=== PATIENT | male | born 1950 | race Caucasian/White ===

== ENCOUNTER → 2019-10-08 14:52 | Outpatient (CLI) | payer OTHER, SELFPAY ==
--- NOTE | ~2019-10-08 | XR_ITS ---
EXAMINATION: XR chest 2V EXAM DATE: 10/08/2019 15:20 INDICATION: Cough for 5 days. TECHNIQUE: Frontal and lateral projections of the chest obtained and reviewed. Comparison is made to prior examination from 10/09/2015. FINDINGS: There is multi segmental right basilar reticulonodular airspace disease likely bronchopneu monia. The lungs are otherwise clear. There are no pleural effusions. The cardiomediastinal silhoue tte is within normal limits. There is no pneumothorax suspected. There are old right posterior rib fractures. IMPRESSION: Multifocal right lower lobe bronchopneumonia. I discussed pneumonia with Dr. Phan Villar MD at 10/08/2019 15:32 FOOTBALL COACH . Reviewed, dictated and finalized at location A. BALL COACH
== END ==
PROVIDERS: PCP Family Medicine; Visit Provider Family Medicine
DX: J40 Bronchitis, not specified as acute or chronic (principal); J18.0 Bronchopneumonia, unspecified organism
CPT/HCPCS: 71046

== ENCOUNTER → 2019-10-16 15:02 | Outpatient (CLI) | payer OTHER, SELFPAY ==
--- NOTE | ~2019-10-16 | XR_ITS ---
EXAMINATION: XR chest 2V 10/16/2019 15:14 INDICATION: Pneumonia. PROCEDURE: 2 view chest COMPARISON: Comparison to multiple prior studies sequentially, with oldest reviewed study dated 12/2013. FINDINGS: The lungs are clear. The cardiomediastinal silhouette is within normal limits. There are no pleural effusions. There is no pneumothorax suspected. There are multiple healed right rib fract ures. IMPRESSION: 1: NO ACUTE CARDIOPULMONARY DISEASE. Reviewed, dictated and finalized at location A.
== END ==
PROVIDERS: PCP Family Medicine; Visit Provider Family Medicine
DX: J18.9 Pneumonia, unspecified organism (principal)
CPT/HCPCS: 71046

== ENCOUNTER 2020-07-11 00:54 | Outpatient (CLI) | payer OTHER, SELFPAY ==
[2020-07-11 19:41] LABS: SARS-CoV-2 RNA PCR Negative
== END 2020-07-11 00:55 | disposition home or self-care (01) ==
LOC: ANHCOVIDDT 00:54
PROVIDERS: PCP Family Medicine; Visit Provider Internal Medicine Gastroenterology
DX: Z01.812 Encounter for preprocedural laboratory examination (principal); Z20.828 Contact with and (suspected) exposure to other viral communicable diseases
CPT/HCPCS: 87635; C9803; U0003

== ENCOUNTER 2020-07-15 00:23 | Day surgery (SDC) | payer OTHER, SELFPAY ==
[2020-07-07 14:17] VITALS: BMI 34.1
[2020-07-15 09:19] VITALS: BP 189/89; PULSE 77; RESP 18; TEMP 36.9; O2SAT 95
--- NOTE | 2020-07-15 09:24 | WPDGICN ---
Assessment and Plan Assessment and plan (1) History of colon polyps: Code(s): Z86.010 - Personal history of colonic polyps Status: Acute Assessment and Plan: Patient has a distant history of colon polyps. He presents to for screening colonoscopy today. Last exam was Five years ago. GI Consult Note Consult date/time: 07/15/20 09:24 HPI: Poli Gray Jr. is a 70 year old male Seen in evaluation at the request of Dr. Balwinder Villar. patient presents for screening colonoscopy. His last colonoscopy was 5 years ago. In the past he has had several colon polyps. Most recently followed by Dr. Valentin. Patient states his current weight appetite bowel movements are normal. He denies abdominal pain. He has had no bleeding. Review of Systems Review of Systems: All systems reviewed & are unremarkable except as noted in HPI and below PMFSH Social History Social History Alcohol intake: current Drinks per week: 25 Alcohol use details: 3-4 beers a night Living arrangements: with family Gender identity (if verbalized by the patient): Male Spiritual care concerns: No Meds Home Medications and Allergies Home Medications Medication Instructions Recorded Confirmed Type allopurinol 300 mg PO DAILY 07/07/20 07/07/20 History amlodipine 5 mg PO DAILY 07/07/20 07/07/20 History lisinopril 40 mg PO DAILY 07/07/20 07/07/20 History metoprolol tartrate 50 mg PO BID 07/07/20 07/07/20 History simvastatin 40 mg PO DAILY 07/07/20 07/07/20 History Allergies Allergy/AdvReac Type Severity Reaction Status Date / Time No Known Allergies Allergy Verified 07/15/20 09:19 Vital Signs Vital Signs - 24 hr 07/15/20 09:19 Temperature 98.4 F Pulse Rate 77 Respiratory Rate 18 Blood Pressure 189/89 H Pulse Oximetry 95 Exam Narrative: Exam Narrative: Physical exam reveals patient to be alert. Vital signs stable. HEENT exam unremarkable. Lungs are clear to auscultation and percussion. Heart is without murmur or extra sounds. Abdominal exam bowel sounds are present soft nontender with no organomegaly. Digital external rectal exam is normal.
[2020-07-15] MEDS: LACTATED RINGERS 1,000 ML 150 ML IV CONT (09:30)
--- NOTE | 2020-07-15 09:51 | WPDANESEPPF ---
Anes - Initial Pre Proc Eval Procedure: Operation Date: 07/15/20 11:00 Proposed Procedures p Screening Colonoscopy - Brayden Francisco MD Date/Time: 07/15/20 09:51 Surgeon: Brayden Francisco MD Pre Op Diagnosis: History of Colon Polyps Patient Data Age: 70 Gender: M Height: 5 ft 11 in Weight: 112.5 kg Last Vital Signs Temp 98.4 F 07/15/20 09:19 Pulse 77 07/15/20 09:19 Resp 18 07/15/20 09:19 BP 189/89 H 07/15/20 09:19 Pulse Ox 95 07/15/20 09:19 Allergies Allergy/AdvReac Type Severity Reaction Status Date / Time No Known Allergies Allergy Verified 07/15/20 09:19 Home Medications Medication Instructions Recorded Confirmed Type allopurinol 300 mg PO DAILY 07/07/20 07/07/20 History amlodipine 5 mg PO DAILY 07/07/20 07/07/20 History lisinopril 40 mg PO DAILY 07/07/20 07/07/20 History metoprolol tartrate 50 mg PO BID 07/07/20 07/07/20 History simvastatin 40 mg PO DAILY 07/07/20 07/07/20 History Patient hx anesthesia problems: none Family hx anesthesia problems: none [facility] Past Medical History Medical History (Updated 07/15/20 @ 09:50 by Edgar Ramirez MD) Hyperlipidemia Hypertension PHILIP (obstructive sleep apnea) Social History Social History Alcohol intake: current Drinks per week: 25 Alcohol use details: 3-4 beers a night Living arrangements: with family Gender identity (if verbalized by the patient): Male Spiritual care concerns: No Anes - Eval Final PreProcedure Day of Procedure 07/15/20 09:51 Patient weight: obese Heart: regular rate and rhythm Lungs: clear to auscultation Airway: Mallampati scale class II Neurological: alert and oriented Last oral intake: >/= 8 hours ASA classification: III Emergent: no Anesthetic plan: proceed Anesthesia type and monitoring: general GIVS and standard monitoring Informed Consent: The patient's anesthetic plan and its attendant risks and benefits were discussed with the patient/family/POA. Questions were solicited and answers provided to the satisfaction of the patient/family/POA.
[2020-07-15 10:23] VITALS: BP 121/72; PULSE 65; RESP 25; O2SAT 92
[2020-07-15 10:33] VITALS: BP 133/77; PULSE 65; RESP 25; O2SAT 92
[2020-07-15 10:43] VITALS: BP 140/80; PULSE 61; RESP 24; O2SAT 92
== END 2020-07-15 10:54 | disposition home or self-care (01) ==
PROVIDERS: PCP Family Medicine; Visit Provider Internal Medicine Gastroenterology
PROC: 0DJD8ZZ Inspection of Lower Intestinal Tract, Via Natural or Artificial Opening Endoscopic (ICD-10-PCS; CPT 45378; principal; 2020-07-15 11:00)
DX: Z12.11 Encounter for screening for malignant neoplasm of colon (principal); K64.8 Other hemorrhoids; K57.30 Diverticulosis of large intestine without perforation or abscess without bleeding; Z86.010 Personal history of colon polyps; I10 Essential (primary) hypertension; E78.5 Hyperlipidemia, unspecified; G47.33 Obstructive sleep apnea (adult) (pediatric); E66.9 Obesity, unspecified; Z68.34 Body mass index [BMI] 34.0-34.9, adult
CPT/HCPCS: G0105; J2704; J7120

== ENCOUNTER → 2020-09-10 14:35 | Outpatient (CLI) | payer OTHER, SELFPAY ==
--- NOTE | ~2020-09-10 | XR_ITS ---
XR chest 2V DATE: 09/10/2020 14:47 INDICATION: Essential hypertension TECHNIQUE: PA and lateral views COMPARISON: 10/16/2019 2 view chest FINDINGS: Heart size is within upper limits of normal. No hilar or mediastinal enlargement. There is mild elevation of the right leaf of the diaphragm, unchanged since 10/16/2019. No pulmonary infiltrate or consolidation, pleural effusion or pulmonary vascular congestion or pneumo thorax. Diffuse osteopenia. Old healed fractures of the posterior right fifth through seventh ribs. IMPRESSION: No active cardiopulmonary disease or significant change since 10/16/2019 Reviewed, dictated and finalized at location A. E OPERATOR IMPRESSION: No active cardiopulmonary disease or significant change since 2019
== END ==
PROVIDERS: PCP Internal Medicine; Visit Provider Internal Medicine
DX: I10 Essential (primary) hypertension (principal)
CPT/HCPCS: 71046

== ENCOUNTER 2021-02-03 14:30 | Outpatient (RCR) | payer OTHER, SELFPAY ==
[2020-11-26 14:19] VITALS: BMI 35.6
[2020-11-26 14:20] VITALS: BMI 78.4
== END 2021-02-17 14:53 | disposition home or self-care (01) ==
LOC: ANHDMC 14:30
PROVIDERS: PCP Internal Medicine; Referring Provider Internal Medicine; Visit Provider Internal Medicine
DX: E11.9 Type 2 diabetes mellitus without complications (principal); Z71.3 Dietary counseling and surveillance; Z71.89 Other specified counseling
CPT/HCPCS: 97802; G0108; G0109

== ENCOUNTER 2021-05-04 14:28 | Outpatient (RCR) | payer OTHER, SELFPAY | END 2021-05-04 16:49 | disposition home or self-care (01) | LOC: ANHDMC 14:28 | PROVIDERS: PCP Internal Medicine; Referring Provider Internal Medicine; Visit Provider Internal Medicine | DX: E11.9 Type 2 diabetes mellitus without complications (principal); Z71.89 Other specified counseling | CPT/HCPCS: G0108 ==

== ENCOUNTER → 2022-10-25 11:20 | Outpatient (CLI) | payer OTHER, SELFPAY ==
--- NOTE | ~2022-10-25 | XR_ITS ---
Clinical Indication: Chest pain PA and lateral views of the chest: Comparison: 09/10/2020 Findings: The lungs are clear, without evidence of focal consolidation or pleural effusion. Cardiome diastinal silhouette is within normal limits. Chronic right rib fracture deformities are unchanged. Impression: Clear lungs. Reviewed, dictated and finalized at [facility]. Impression: Clear lungs.
== END ==
PROVIDERS: PCP Internal Medicine; Visit Provider Internal Medicine
DX: R07.9 Chest pain, unspecified (principal)
CPT/HCPCS: 71046

== ENCOUNTER 2022-11-11 14:03 | Outpatient (CLI) | payer OTHER, SELFPAY | END 2022-11-11 14:04 | disposition home or self-care (01) | LOC: ANHAUDIO 14:04 | PROVIDERS: PCP Internal Medicine; Visit Provider Otolaryngology | DX: H90.3 Sensorineural hearing loss, bilateral (principal) | CPT/HCPCS: 92557; 92567 ==

== ENCOUNTER 2022-12-28 14:08 | Outpatient (CLI) | payer OTHER, SELFPAY ==
--- NOTE | ~2022-12-28 | CT_ITS ---
CT Scan of the Chest without Contrast: Clinical Indication: Cough, elevated right hemidiaphragm Technique: Contiguous sections were acquired throughout the chest without intravenous contrast. Dose reduction technique was used on this scan by utilizing automated exposure control and iterative recon struction technique. The dose-length product (DLP) was 551.16 mGy-cm. Findings: There is no evidence of any significant mediastinal, hilar or axillary lymphadenopathy. Extensive cor onary artery calcifications are present. Calcified subcarinal and right hilar lymph nodes are present . There is no evidence of pleural or pericardial effusion. The lungs are clear, aside from calcified right lower lobe granuloma. Images through the upper abdomen reveal no abnormalities. Old right-sided rib fracture deformities ar e noted. Impression: No acute abnormality evident. Evidence of prior granulomatous disease. Extensive coronary artery calcifications. Reviewed, dictated and finalized at [facility]. Impression: No acute abnormality evident. Evidence of prior granulomatous disease. Extensive coronary artery calcifications.
== END 2022-12-28 14:09 | disposition home or self-care (01) ==
PROVIDERS: PCP Internal Medicine; Visit Provider Physician Assistant
DX: R05.9 Cough, unspecified (principal); R68.89 Other general symptoms and signs; I25.10 Atherosclerotic heart disease of native coronary artery without angina pectoris
CPT/HCPCS: 71250

== ENCOUNTER → 2023-07-10 08:57 | Outpatient (CLI) | payer OTHER, SELFPAY ==
--- NOTE | ~2023-07-10 | XR_ITS ---
XR chest 2V 07/10/2023 09:13 Indication: Cough Procedure: 2 view chest Comparison: Comparison to multiple prior studies sequentially, with oldest reviewed study dated 10/2019. Findings: Heart size normal. No focal air space disease, pulmonary edema, pleural effusion or suspect ed pneumothorax. Healed right rib fractures are seen. No acute osseous abnormality. Impression: 1: No acute cardiopulmonary disease. Reviewed, dictated and finalized at location B. A INSTRUCTOR Impression: 1: No acute cardiopulmonary disease.
== END ==
PROVIDERS: PCP Physician Assistant; Visit Provider Physician Assistant
DX: R05.9 Cough, unspecified (principal)
CPT/HCPCS: 71046

== ENCOUNTER 2024-05-02 16:15 | Outpatient (CLI) | payer OTHER, SELFPAY ==
--- NOTE | ~2024-05-02 | XR_ITS ---
XR chest 2V 05/02/2024 16:31 Indication: Bronchitis Procedure: 2 view chest Comparison: Comparison to multiple prior studies sequentially, with oldest reviewed study dated 10/25. Findings: Borderline heart size. No focal air space disease, pulmonary edema, pleural effusion or sachin pected pneumothorax. There are multiple healed right rib fractures. Impression: 1: No acute cardiopulmonary disease. Reviewed, dictated and finalized at location B. Impression: 1: No acute cardiopulmonary disease.
== END 2024-05-02 16:16 | disposition home or self-care (01) ==
LOC: ANHIMG 16:19
PROVIDERS: PCP Internal Medicine; Visit Provider Internal Medicine
DX: J40 Bronchitis, not specified as acute or chronic (principal)
CPT/HCPCS: 71046

== ENCOUNTER 2024-06-25 15:08 | Outpatient (CLI) | payer OTHER, SELFPAY ==
--- NOTE | ~2024-06-25 | CT_ITS ---
EXAMINATION: CT sinus wo con DATE: 06/25/2024 15:29 INDICATION: Chronic maxillary sinusitis. TECHNIQUE: Computed tomography (CT) of the paranasal sinuses was performed without intravenous contra st. Iterative reconstruction technique was employed. The dose-length product was 293.24 mGy-cm. COMPARISON: None FINDINGS: There is mild mucosal thickening in the frontal sinuses and ethmoid sinuses. The sphenoid s inuses are clear. There is moderate mucosal thickening in the maxillary sinuses. There is leftward de viation of the nasal septum with a left lateral spur. Right middle turbinate is paradoxical. The osti omeatal units are patent. Dental implants extend into the right maxillary sinus. IMPRESSION: 1. Mucosal thickening in the paranasal sinuses. 2. Leftward deviation of the nasal septum. Reviewed, dictated and finalized at location A. APPRENTICE
== END 2024-06-25 15:09 | disposition home or self-care (01) ==
PROVIDERS: PCP Internal Medicine; Visit Provider Otolaryngology
DX: J34.2 Deviated nasal septum (principal); J32.0 Chronic maxillary sinusitis; R05.3 Chronic cough; K21.9 Gastro-esophageal reflux disease without esophagitis
CPT/HCPCS: 70486

== ENCOUNTER 2025-04-17 19:33 | Emergency (ER) | payer OTHER, SELFPAY ==
[2025-04-17 19:40] VITALS: BP 129/97; PULSE 73; RESP 18; TEMP 36.7; O2SAT 97
--- NOTE | 2025-04-17 19:59 | ED_ITS ---
HPI - Extremity Problem General Chief complaint: Extremity Problem,Nontraumatic Stated complaint: Right Foot Big Toe Pain Time Seen by Provider: 04/17/25 19:40 Source: patient and RN notes reviewed Mode of arrival: ambulatory Limitations: no limitations History of Present Illness HPI Narrative: 74-year-old male presents to [facility] complaining of right great toe pain. Patient denies any injuries. She said it has been gone over last 2-3 weeks. Patient is wearing new shoes that he believes they were uncomfortable please are bothering his right great toe. Patient did not switch use noticed that his right toe nail was discolored. Patient denies any redness, swelling, fevers, drainage, nausea vomiting, or as symptoms. Patient has a history of diabetes. Patient has not tried any [id number] to help. Related Data Home Medications ?Medication ?Instructions ?Recorded ?Confirmed ?Last Taken ?Type B-complex with vitamin C 1 tablet PO DAILY 09/10/20 0 12/10/24 Unknown History melatonin 5 mg tablet mg PO 09/10/20 12/10/24 Unkn own History multivitamin 1 tablet PO DAILY 09/10/20 0 12/10/24 Unknown History omega 2-bvh-rid-fish oil 1,000 mg 1 cap PO DAILY 09/1012/10/24 Unknown History (120 mg-180 mg) capsule (Fish Oil) calcium carb-vit B-O5-C1-K-sod 600 tablet PO 08/03/21 12/10/24 Unknown History mg calcium-200 unit chewable tablet turmeric 100 mg-zoila 150 cap PO 08/03/21 12/10/24 Un known History mg-olive 50 mg-oreg 150 mg-capryl capsule milk thistle 500 mg capsule See Rx Instructions PO DESTINEE LY 04/06/22 12/10/24 Unknown History aspirin 81 mg tablet,delayed 81 mg PO DAILY 03/27/23 0 12/10/24 Unknown History release (Adult Low Dose Aspirin) coenzyme Q10 75 mg capsule (Ultra 75 mg PO DAILY 03/2712/10/24 Unknown History CoQ10) famotidine 20 mg tablet 20 mg PO DAILY 08/14/24 05/01/29 Unknown History ipratropium bromide 21 mcg (0.03 2 spray intranasal BI D 08/14/24 12/10/24 Unknown History %) nasal spray omeprazole 40 mg capsule,delayed 40 mg PO DAILY 12/10/24 Unknown History release Allergies Allergy/AdvReac Type Severity Reaction Status Date / Time No Known Allergies Allergy Verified 04/17/25 19:47 Review of Systems Review of Systems: CONSTITUTIONAL: Denies fever, chills, or sweats. EYES: Denies visual changes, redness, or discharge. ENT: Denies rhinorrhea, congestion, sore throat, or otalgia. CARDIOVASCULAR: Denies chest pain, palpitations, or edema. RESPIRATORY: Denies cough or dyspnea. GASTROINTESTINAL: Denies abdominal pain, nausea, vomiting, or diarrhea. GENITOURINARY: Denies dysuria or hematuria. SKIN: Denies rash or itching. Positive for toenail discoloration. MUSCULOSKELETAL: Denies back pain, joint pain, or myalgia. Positive for toe pain. NEUROLOGIC: Denies headache, numbness, or weakness. PSYCHIATRIC: Denies anxiety or depression. All other systems reviewed are negative, except as documented in HPI. [facility] Past Medical History Medical History Chronic sinusitis of both maxillary sinuses Failed total right knee replacement Alcohol abuse History of tobacco use Type 2 diabetes mellitus without complication, with no history of insulin use Gout Failed total left knee replacement PHILIP (obstructive sleep apnea) Hypertension Hyperlipidemia Surgical History Surgical History History of cataract surgery H/O umbilical hernia repair History of total knee replacement Family History Family History Father Heart disease Hypertension Grandparent Diabetes mellitus Sibling Heart disease Diabetes mellitus Mother Depression Thyroid disorder Grandparent Malignant neoplasm of prostate Social History Social History Smoking packs per day: 1 Smoking cigarettes per day: 20.0 Years smoked: 12 Smoking pack-years: 12.00 Smoking status: Former smoker Tobacco type: cigarettes Second hand tobacco smoke exposure: Yes Smoking end date: 08/07/82 Alcohol intake: current Drinks per week: 25 Alcohol use details: 3-4 beers a night Substance use: never Substance use type: does not use Lack of Transportation: No Lack of Food: Never True Current Housing: I Have Housing Concerned About Future Housing: No Difficulty Paying Gas/Electric Bills: No Difficulty Paying for Meds: No Currently Unemployed: No Education: Master's Degree or Higher Difficulty w/ Childcare or Family Care: No Living arrangements: with friend(s) Occupation/Education: retired Gender identity (if verbalized by the patient): Male Spiritual care concerns: No Comments At the time of my signature, I reviewed and agree with the nursing past medical, surgical, social, and family history. There is no relevant family history pertinent to the patient complaint. Exam Narrative: GENERAL: This is a well-nourished, well-developed adult, in no apparent distress. They are non ill-appearing, nontoxic appearing. HEAD: normocephalic, atraumatic. EYES: Sclera clear/white. Conjunctiva normal. Vision is grossly intact. Extraocular movements intact EARS: External ears normal, Hearing grossly intact. NOSE: External nose normal THROAT: Mucous membranes moist, NECK: Neck supple, CARDIOVASCULAR: Regular rate and rhythm RESPIRATORY: Respiratory rate normal, respiratory effort nonlabored, no respiratory distress SKIN: warm, Dry, intact with no suspicious lesions or rash, good texture and turgor. NEURO: awake, alert, and oriented to person, place and time. There were no obvious focal neurologic abnormalities. EXTREMITIES: Right foot: No obvious deformity, bruising, redness, swelling, or injury. Right great toe nails discolored, cloudy, yellowish, surrounding skin hyperpigmented and thin. Right great toe, 2nd toe Nail bed intact, and Nail plate intact. No redness no drainage. Nontender to palpate. Capillary refill less than 2 seconds. Normal sensation. Normal range of motion. Right pedal pulse 2 +and palpable. Patient is able to wiggle his toes. Neurovascular status intact. Right 2nd toe nails also discolored cloudy, yellowish. Also nontender to palpate. Left great toe nail hypertrophic, discolored, yellow, nontender to palpate. Left great toe nail plate intact. Left great toe nail bed intact. Course Course Emergency Course: Portions of this record may have been created with voice recognition software Level of Care: Express [facility] Visit Vital Signs Vital signs: Vital Signs Temperature 98.0 F 04/17/25 19:40 Pulse Rate 73 04/17/25 19:40 Respiratory Rate 18 04/17/25 19:40 Blood Pressure 129/97 H 04/17/25 19:40 Pulse Oximetry 97 04/17/25 19:40 Oxygen Delivery Room Air 04/17/25 19:40 Temperature 98.0 F 04/17/25 19:40 Pulse Rate 73 04/17/25 19:40 Respiratory Rate 18 04/17/25 19:40 Blood Pressure 129/97 H 04/17/25 19:40 Pulse Oximetry 97 04/17/25 19:40 Oxygen Delivery Room Air 04/17/25 19:40 Reviewed MDM - Extremity (Nontraumatic) MDM Narrative Medical decision making narrative: Right great toes nontender to palpate. Does not appear to be a subungual hematoma. Though may be chronic however other nail beds appear involved. Patient also has a history of diabetes with may increase his risk of a fungal nail infection. Appears likely more to be onychomycosis. Appears to be involvement to the left great toe and right 2nd toe. No evidence of cellulitis. Nail plate in beds are intact. Will treat with ciclopirox device follow-up with PCP. Advised patient treatment may last up to 48 weeks any may need oral therapy if her for treatment is refractory. Discussed physical exam findings. Advised supportive measures and signs/symptoms to go to the ER. Pt is appropriate for outpt treatment and f/u. Differential Diagnosis Differential diagnosis: Likely other (Onychomycosis, paronychia, cellulitis, subungual hematoma) Critical Care Time Critical Care Time Critical Care Time: No Discharge Plan Discharge Clinical Impression: Onychomycosis Patient Disposition: Home Condition: Stable Instructions: Skin Yeast Infection (ED) Additional Instructions: Apply the ciclopirox to the affected nails and surrounding skin once daily with weekly nail trimming and debridement. Remove it with alcohol wipes or rubbing alcohol every 7 days. Continue therapy until the improvement. You may continue treatment for up to a max of 48 weeks. Follow-up with PCP in 3-5 days. If you developed redness, swelling, pain, drainage, fevers, or any serious concerns please go to the ER. Patient Language: Malay Prescriptions: New ciclopirox 8 % solution 1 applic topical HS 28 Days Qty: 6.6 3RF Rx Instructions: Apply to affected toe nails and surrounding skin daily, remove with alcohol wipe were rubbing alcohol every 7 days. Continue therapy until improvement of symptoms. Maximum treatment is 48 weeks. No Action Ultra CoQ10 75 mg capsule 75 mg PO DAILY aspirin [Adult Low Dose Aspirin] 81 mg tablet,delayed release (DR/EC) 81 mg PO DAILY pantoprazole [Protonix] 20 mg tablet,delayed release (DR/EC) 20 mg PO BID Qty: 60 3RF Rx Instructions: take 1 tablet b.i.d. on empty stomach and wait 15-30 minutes before eating or drinking nifedipine [Procardia XL] 90 mg tablet extended release 24hr 90 mg PO DAILY Qty: 30 0RF multivitamin Tablet 1 tablet PO DAILY B-complex with vitamin C Tablet 1 tablet PO DAILY omega 3-seq-mtl-fish oil [Fish Oil] 1,000 mg (120 mg-180 mg) capsule 1 cap PO DAILY melatonin 5 mg tablet PO calcium carb-vit I-L7-J6-K-sod 600 mg calcium- 200 unit tablet,chewable PO bktiwftv-zmxs-uwpjn-oreg-capry 100 mg-150 mg- 50 mg-150 mg capsule PO milk thistle 500 mg capsule See Rx Instructions PO DAILY Rx Instructions: 525 orally daily; give with meal/snack famotidine 20 mg tablet 20 mg PO DAILY omeprazole 40 mg capsule,delayed release(DR/EC) 40 mg PO DAILY ipratropium bromide 21 mcg (0.03 %) spray,non-aerosol 2 spray intranasal BID Rx Instructions: administer into each nostril (DME) lancets [Comfort EZ Lancets] 28 gauge misc See Rx Instructions .Route Qty: 100 1RF Rx Instructions: Use to test blood sugar daily pt has Contour meter, please provide compatible lancets (DME) Contour Next Test Strips Strip See Rx Instructions .Route Qty: 100 1RF Rx Instructions: Use to test Blood sugar once daily metoprolol tartrate 50 mg tablet 50 mg PO BID Qty: 180 1RF atorvastatin 80 mg tablet 80 mg PO DAILY Qty: 90 3RF allopurinol 300 mg tablet 300 mg PO DAILY Qty: 90 3RF valsartan 320 mg tablet 320 mg PO DAILY Qty: 90 3RF doxazosin [Cardura] 4 mg tablet 4 mg PO DAILY Qty: 90 2RF furosemide 40 mg tablet See Rx Instructions .ROUTE .COMPLEX Qty: 90 1RF Dose Instruction: TAKE 1 TABLET BY MOUTH EVERY DAY IN THE MORNING Rx Instructions: TAKE 1 TABLET BY MOUTH EVERY DAY IN THE MORNING metformin 500 mg tablet 500 mg PO BID Qty: 180 3RF Follow-up/Referrals: Meliton Araujo DO [Primary Care Provider, Internal Medicine] Time of Disposition: 19:56
== END 2025-04-17 19:59 | disposition home or self-care (01) ==
PROVIDERS: PCP Internal Medicine
DX: B35.1 Tinea unguium (principal); Z87.891 Personal history of nicotine dependence; E11.9 Type 2 diabetes mellitus without complications; I10 Essential (primary) hypertension; E78.5 Hyperlipidemia, unspecified; M10.9 Gout, unspecified; Z79.82 Long term (current) use of aspirin
CPT/HCPCS: 99213; G0463